=== PATIENT | male | born 1955 | race Caucasian/White ===

== ENCOUNTER 2022-04-17 18:29 | Inpatient (IN) | payer OTHER ==
[~2022-04-17] VITALS: Ht 175.3 cm; Wt 84.1 kg
[2022-04-17 19:05] LABS: BASOPHILS % (AUTO) 0.2 % (0-1); EOSINOPHILS # (AUTO) 0.1 X10'3 (0-0.9); EOSINOPHILS % (AUTO) 0.4 % (0-6); HEMATOCRIT 40.2 % (42.0-52.0); HEMOGLOBIN 13.6 g/dl (14.0-17.9); LYMPHOCYTES # (AUTO) 1.3 X10'3 (1.1-4.8); LYMPHOCYTES % (AUTO) 5.6 % (21-51); MEAN CORPUSCULAR HEMOGLOBIN 31.1 PG (27.0-31.0); MEAN CORPUSCULAR HGB CONC 33.9 g/dL (33.0-36.5); MEAN CORPUSCULAR VOLUME 91.7 FL (78-98); MONOCYTES # (AUTO) 2.5 X10'3 (0-0.9); MONOCYTES % (AUTO) 11.1 % (2-12); NEUTROPHILS % (AUTO) 82.7 % (42-75); PLATELET COUNT 266 X10'3 (140-440); RED BLOOD COUNT 4.38 X10'6 (4.70-6.10); RED CELL DISTRIBUTION WIDTH 12.9 % (11.5-14.5); WHITE BLOOD COUNT 22.9 X10'3 (4.5-11.0)
[2022-04-17 19:12] LABS: ALANINE AMINOTRANSFERASE 21 U/L (12-78); ALBUMIN 2.8 G/DL (3.4-5.0); ALBUMIN/GLOBULIN RATIO 0.6 (1.1-1.5); ALKALINE PHOSPHATASE 119 IU/L (46-116); ANION GAP 8 (8-16); ASPARTATE AMINO TRANSFERASE 21 U/L (10-37); BILIRUBIN,TOTAL 1.1 MG/DL (0.1-1.0); BLOOD UREA NITROGEN 31 MG/DL (7-18); BUN/CREATININE RATIO 14.3 (5.4-32.0); CALCIUM 8.7 MG/DL (8.5-10.1); CHLORIDE 96 MMOL/L (99-107); CREATININE 2.17 MG/DL (0.60-1.10); GLUCOSE 126 MG/DL (70-104); SODIUM 134 MMOL/L (135-145); TOTAL CARBON DIOXIDE 29.9 MMOL/L (24-32); TOTAL PROTEIN 7.3 G/DL (6.4-8.2); eGFR 31 ML/MIN
[2022-04-17 19:19] LABS: POTASSIUM 2.9 MMOL/L (3.5-5.1)
[2022-04-17 19:46] LABS: PLATELET ESTIMATE NORMAL; TOTAL CELLS COUNTED 100
[2022-04-17] MEDS ORDERED: normal saline 1000ML IV soln IVB ONE (22:35)
[2022-04-17] MEDS ORDERED: ceFAZolin 1GM/D5W- ADD-VANTAGE 50 ML IV ONE (22:35)
[2022-04-17] MEDS ORDERED: morphine 4 MG/ML inj SYRINge IV ONE (22:35)
[2022-04-17] MEDS ORDERED: acetaminophen 325mg tablet PO ONE (22:35)
[2022-04-17] MEDS ORDERED: vancomycin/NS 1 GM ADD-VANTAGE 250 ML IV ONE (22:35)
[2022-04-18] MEDS ORDERED: magnesium hydroxide 30ml (MOM) UD suspension PO PRN (01:25)
[2022-04-18] MEDS ORDERED: mag hydrox/Alum hydrox/simeth 30ml oral suspension PO PRN (01:25)
[2022-04-18] MEDS ORDERED: ondansetron/PF 4mg/2ml inj IV PRN (01:25)
[2022-04-18] MEDS ORDERED: potassium Cl 20 mEq SR tablet PO PRN (01:25)
[2022-04-18] MEDS ORDERED: HYDROcodone/acetaminophen 5mg/325mg tablet PO PRN (01:25)
[2022-04-18] MEDS ORDERED: acetaminophen 325mg tablet PO PRN (01:25)
[2022-04-18] MEDS ORDERED: magnesium 4gm in 100ml NS 100 ML IV PRN (01:25)
[2022-04-18] MEDS ORDERED: potassium Cl 40MEQ/1/2NS 520ml 520 ML IV PRN (01:25)
[2022-04-18] MEDS ORDERED: HYDROcodone/acetaminophen 10/325mg tab PO PRN (01:25)
[2022-04-18] MEDS ORDERED: magnesium Cl slow-release 64mg tablet PO PRN (01:25)
[2022-04-18] MEDS: normal saline 1000ml 1,000 ML IV SCH ×2 (01:59→20:28)
[2022-04-18] MEDS: potassium Cl 20 mEq SR tablet PO PRN ×2 (02:03→08:16)
--- NOTE | 2022-04-18 02:19 | NUR ---
MEDS WERE GIVEN LATE D/T VERY HIGH ACUITY INCOMING PT
[2022-04-18] MEDS: clindamycin 600mg/D5W 50ml 50 ML IV SCH ×4 (04:45→20:27)
[2022-04-18 07:19] LABS: MAGNESIUM 1.9 MG/DL (1.5-2.4); POTASSIUM 3.2 MMOL/L (3.5-5.1)
[2022-04-18] MEDS: heparin, porcine 5000 units/ml vial SQ SCH ×2 (08:00→20:00)
[2022-04-18] MEDS: K and/or MAG REPLACEMENT MC SCH ×2 (08:00→20:00)
[2022-04-18] MEDS: docusate sod 100mg capsule PO SCH ×2 (08:13→20:00)
[2022-04-18] MEDS: clopidogrel 75mg tablet PO SCH (08:14)
[2022-04-18] MEDS: amLODIPine 5mg tablet PO SCH (08:17)
[2022-04-18] MEDS: ceFAZolin/D5W- 1GM premix 50 ML IV SCH ×2 (10:20→16:00)
[2022-04-18] MEDS ORDERED: HYDR12.55 PO (14:32)
[2022-04-18] MEDS ORDERED: HYDR20OI TOP (14:32)
[2022-04-18] MEDS ORDERED: ATOR40TA72 PO (14:32)
[2022-04-18] MEDS ORDERED: CLOP75TA34 PO (14:32)
[2022-04-18] MEDS ORDERED: AMLO5TAB16 PO (14:32)
--- NOTE | 2022-04-18 17:49 | NUR ---
WAITING FOR ANCEF FROM PHARMACY
--- NOTE | 2022-04-19 00:48 | NUR ---
Awaiting abx from pharmacy.
[2022-04-19] MEDS: ceFAZolin/D5W- 1GM premix 50 ML IV SCH ×2 (01:07→09:39)
[2022-04-19] MEDS: clindamycin 600mg/D5W 50ml 50 ML IV SCH ×2 (02:00→08:37)
--- NOTE | 2022-04-19 06:45 | NUR ---
patient asleep,respirations regular.
[2022-04-19] MEDS: docusate sod 100mg capsule PO SCH (08:00)
[2022-04-19] MEDS: heparin, porcine 5000 units/ml vial SQ SCH (08:00)
[2022-04-19] MEDS: amLODIPine 5mg tablet PO SCH (08:00)
[2022-04-19] MEDS: clopidogrel 75mg tablet PO SCH (08:34)
[2022-04-19] MEDS: K and/or MAG REPLACEMENT MC SCH (08:37)
[2022-04-19 08:44] VITALS: BP 99/47
[2022-04-19 08:45] LABS: BASOPHILS # (AUTO) 0.1 X10'3 (0-0.2); BASOPHILS % (AUTO) 0.3 % (0-1); EOSINOPHILS # (AUTO) 0.3 X10'3 (0-0.9); EOSINOPHILS % (AUTO) 1.7 % (0-6); HEMOGLOBIN 11.3 g/dl (14.0-17.9); LYMPHOCYTES # (AUTO) 1.4 X10'3 (1.1-4.8); LYMPHOCYTES % (AUTO) 8.5 % (21-51); MEAN CORPUSCULAR HEMOGLOBIN 31.1 PG (27.0-31.0); MEAN CORPUSCULAR HGB CONC 33.3 g/dL (33.0-36.5); MEAN CORPUSCULAR VOLUME 93.4 FL (78-98); MEAN PLATELET VOLUME 7.5 FL (7.4-10.4); MONOCYTES # (AUTO) 1.8 X10'3 (0-0.9); MONOCYTES % (AUTO) 10.7 % (2-12); NEUTROPHILS # (AUTO) 13.2 X10'3 (1.8-7.7); NEUTROPHILS % (AUTO) 78.8 % (42-75); PLATELET COUNT 287 X10'3 (140-440); RED BLOOD COUNT 3.65 X10'6 (4.70-6.10); RED CELL DISTRIBUTION WIDTH 13.1 % (11.5-14.5); WHITE BLOOD COUNT 16.8 X10'3 (4.5-11.0)
[2022-04-19 08:58] LABS: ALANINE AMINOTRANSFERASE 20 U/L (12-78); ALBUMIN 2.2 G/DL (3.4-5.0); ALBUMIN/GLOBULIN RATIO 0.6 (1.1-1.5); ALKALINE PHOSPHATASE 106 IU/L (46-116); ANION GAP 8 (8-16); ASPARTATE AMINO TRANSFERASE 38 U/L (10-37); BILIRUBIN,TOTAL 0.6 MG/DL (0.1-1.0); BLOOD UREA NITROGEN 29 MG/DL (7-18); BUN/CREATININE RATIO 17.7 (5.4-32.0); CALCIUM 8.6 MG/DL (8.5-10.1); CHLORIDE 103 MMOL/L (99-107); CREATININE 1.64 MG/DL (0.60-1.10); GLUCOSE 103 MG/DL (70-104); POTASSIUM 3.6 MMOL/L (3.5-5.1); SODIUM 140 MMOL/L (135-145); TOTAL CARBON DIOXIDE 28.7 MMOL/L (24-32); TOTAL PROTEIN 6.1 G/DL (6.4-8.2); eGFR 42 ML/MIN
--- NOTE | 2022-04-19 09:45 | NUR ---
received report, assumed care. A&Ox4. mood is unpleasant and minimal answers of event leading to leg wound given. will not let me assess skin and will not get in hospital gown.
--- NOTE | 2022-04-19 14:49 | NUR ---
patient left AMA. Dr Hummel aware.
[2022-04-23] MEDS ORDERED: CEPH-585 PO (11:20)
[2022-04-23] MEDS ORDERED: POTA-206 PO (11:20)
== END 2022-04-19 14:52 | disposition left against medical advice (07) | DRG 602 ==
LOC: EDBD 18:30 → ER 18:30 → ED HOLD 04-18 01:27 → SUR 3N 04-19 09:48
PROVIDERS: ADMIT Internal Medicine; ATTEND Family Medicine
DX: L03.116 Cellulitis of left lower limb (principal); N17.0 Acute kidney failure with tubular necrosis; E87.1 Hypo-osmolality and hyponatremia; E78.5 Hyperlipidemia, unspecified; E87.6 Hypokalemia; R21 Rash and other nonspecific skin eruption; I10 Essential (primary) hypertension; Z53.29 Procedure and treatment not carried out because of patient's decision for other reasons; Z79.02 Long term (current) use of antithrombotics/antiplatelets; Z86.73 Personal history of transient ischemic attack (TIA), and cerebral infarction without residual deficits; Z87.891 Personal history of nicotine dependence; Z88.2 Allergy status to sulfonamides
CPT/HCPCS: 36415; 73590; 73610; 80053; 83605; 83735; 84132; 84145; 85007; 85025; 85610; 87040; 93971; 99285; G0378; J0690; J2270; J3370; J3490; J7030